=== PATIENT | female | born 1935 | race Caucasian/White ===

== ENCOUNTER 2017-08-02 08:22 | Outpatient (CLI) | payer MEDICARE, BC ==
[~2017-08-02 08:22] MED LIST: ALBU8HFA PO
[2017-08-02 09:06] LABS: TOTAL HEMOGLOBIN 14.3 G/dl (12.0-16.0)
[2017-08-02] MEDS ORDERED: albuterol 2.5 MG/3 ML nebule NEB ONE (09:40)
== END 2017-08-02 23:59 | disposition home or self-care (01) ==
LOC: RT 08:22
PROVIDERS: ATTEND Internal Medicine Pulmonary Disease
DX: J44.9 Chronic obstructive pulmonary disease, unspecified (principal)
CPT/HCPCS: 85018; 94060; 94640; 94727; 94729; 94760; A6449